=== PATIENT | male | born 1990 | race Caucasian/White ===

== ENCOUNTER 2016-10-13 06:19 | Day surgery (SDC) | payer SELFPAY ==
[~2016-10-13 06:19] MED LIST: Lactated Ringers 1,000 ML IV SCH; ceFAZolin 2 GM in Premix Bag 1 BAG IV SCH
--- NOTE | 2016-10-13 07:00 | PCM.PREANE ---
Preanesthetic Assessment - Anesthesia/Transfusion/Family Hx Anesthesia History: Prior Anesthesia Without Reaction Family History of Anesthesia Reaction: No Transfusion History: No Prior Transfusion(s) Intubation History: Unknown - Review of Systems General: No Symptoms Pulmonary: No Symptoms Cardiovascular: No Symptoms Gastrointestinal: No Symptoms Neurological: No Symptoms Other: Reports: None - Physical Assessment NPO Status Date: 10/12/16 NPO Status Time: 21:00 O2 Sat by Pulse Oximetry: 98 Respiratory Rate: 16 Vital Signs: Last Vital Signs Temp 36.9 C 10/13/16 06:41 Pulse 50 L 10/13/16 06:41 Resp 16 10/13/16 06:41 BP 118/74 10/13/16 06:41 Pulse Ox 98 10/13/16 06:41 Height: 1.75 m Weight: 63.957 kg ASA Class: 2 Mental Status: Alert & Oriented x3 Airway Class: Mallampati = 3 Dentition: Reports: Normal Dentition, Broken Tooth/Teeth (upper right incisor) Thyro-Mental Finger Breadths: 3 Mouth Opening Finger Breadths: 2 ROM/Head Extension: Full Lungs: Clear to Auscultation, Normal Respiratory Effort Cardiovascular: Regular Rate, Regular Rhythm - Allergies Allergies/Adverse Reactions: Allergies Allergy/AdvReac Type Severity Reaction Status Date / Time bee stings Allergy Swelling Uncoded 10/11/16 08:50 - Blood Blood Available: No - Anesthesia Plan Pre-Op Medication Ordered: None - Acknowledgements Anesthesia Type Planned: General Anesthesia Pt an Appropriate Candidate for the Planned Anesthesia: Yes Alternatives and Risks of Anesthesia Discussed w Pt/Guardian: Yes Pt/Guardian Understands and Agrees with Anesthesia Plan: Yes PreAnesthesia Questionnaire Gastrointestinal History: Reports: None - Past Surgical History Head Surgeries/Procedures: Reports: None GI Surgical History: Reports: Hernia, Inguinal (left at age about 10-12) - SUBSTANCE USE Smoking Status *Q: Current Every Day Smoker (< 1 ppd) Tobacco Use Within Last Twelve Months: Cigarettes Recreational Drug Type: Reports: Marijuana/Hashish - HOME MEDS Home Medications: Home Meds Ascorbic Acid [Vitamin C] 1 tab.chew CHEW DAILY 10/11/16 [History] Multivitamin [Multivitamins] 1 tab PO DAILY 10/11/16 [History] - CURRENT (IN HOUSE) MEDS Current Meds: Current Medications Lactated Ringer's (Ringers, Lactated) 1,000 mls @ 125 mls/hr IV ASDIRECTED [facility] Last Admin: 10/13/16 06:44 Dose: 125 mls/hr Cefazolin Sodium/Dextrose 2 gm (/ Premix) 50 mls @ 100 mls/hr IV ONETIME [facility]
[2016-10-13] MEDS ORDERED: Lidocaine 2% 5 ML SDV ONE (07:21)
[2016-10-13] MEDS ORDERED: fentaNYL 250 MCG/5 ML SDV ONE (07:22)
[2016-10-13] MEDS ORDERED: Ketorolac 30 MG/ML SDV ONE (07:22)
[2016-10-13] MEDS ORDERED: Propofol 200 MG/20 ML SDV ONE (07:22)
[2016-10-13] MEDS ORDERED: Neostigmine Methylsulfate 1 MG/ML 5 ML Syringe ONE (07:22)
[2016-10-13] MEDS ORDERED: Midazolam 1 MG/ML 2 ML SDV ONE (07:22)
[2016-10-13] MEDS ORDERED: Ondansetron 4 MG/2 ML SDV ONE (07:22)
[2016-10-13] MEDS ORDERED: ceFAZolin 1 GM Vial ONE (07:27)
[2016-10-13] MEDS ORDERED: Bupivacaine 0.5% 30 ML SDV ONE (07:28)
[2016-10-13] MEDS ORDERED: fentaNYL 100 MCG/2 ML SDV ONE (08:36)
[2016-10-13] MEDS ORDERED: fentaNYL 100 MCG/2 ML SDV IVPUSH PRN (08:42)
[2016-10-13] MEDS ORDERED: Morphine 10 MG/ML Syringe IVPUSH PRN (09:43)
[2016-10-13] MEDS ORDERED: Ondansetron 4 MG/2 ML SDV IVPUSH PRN (09:43)
[2016-10-13] MEDS ORDERED: Acetaminophen/HYDROcodone 325-5 MG Tab PO PRN (09:43)
[2016-10-13] MEDS ORDERED: Lactated Ringers 1,000 ML IV SCH (09:45)
--- NOTE | 2016-10-13 09:46 | PCM.OPNOTE ---
- General Post-Op/Procedure Note Date of Surgery/Procedure: 10/13/16 Operative Procedure(s): Repair incarcerated direct RIH w/XL Bard Perfix plug & patch Pre Op Diagnosis: Incarcerated RIH Post-Op Diagnosis: Same Anesthesia Technique: General ET Tube (ASA II) Primary Surgeon: Arcadio Ramirez Fluid Replacement, Intraop: 1,300 EBL in mLs: 15 Condition: Good Free Text/Narrative:: Dictation [id number]
[2016-10-13 11:38] VITALS: BP 127/75
--- NOTE | 2016-10-13 15:34 | OR ---
SURGEON: Arcadio Ramirez M.D. DATE OF PROCEDURE: 10/13/2016 OPERATION PERFORMED: Repair of direct right inguinal hernia with extra-large Bard PerFix plug and patch. ANESTHESIA: General endotracheal. ASA CLASSIFICATION: II. PREOPERATIVE DIAGNOSIS: Incarcerated right inguinal hernia. POSTOPERATIVE DIAGNOSIS: Incarcerated direct right inguinal hernia with a very large hernia sac. ESTIMATED BLOOD LOSS: 15 mL. INTRAOPERATIVE FLUID REPLACEMENT: 1300 mL of crystalloid. DESCRIPTION OF PROCEDURE: The patient was taken to the operating room, placed on the operating table in the supine position. Time-out was called for appropriate identification of patient and procedure. The surgical site was marked prior to the patient entering the operating room. Thigh-high TEDs and sequential compression boots were placed. Following satisfactory attainment of general endotracheal anesthesia, the abdomen was prepped with DuraPrep solution and sterile drapes were applied. The skin incision was marked out in the right inguinal crease. The skin was then infiltrated with 10 mL of 0.5% Marcaine solution. The skin incision was made and deepened through the subcutaneous tissue obtaining hemostasis with the use of electrocautery. The external oblique was opened in the direction of its fibers. The hernia sac was identified and mobilized away from the cord. Care was taken to preserve and protect the ilioinguinal nerve and spermatic cord. The patient had a very large sac that required significant dissection to mobilize away from the cord. The sac was then opened and high ligation of the sac ultimately carried out with a pursestring suture of 2-0 silk. The hernia sac was inspected for hemostasis and not bleeding. The suture was then cut. The patient had a very large medial defect that required an extra- large Bard PerFix plug and patch. This was brought to the operating table and soaked in 1% Ancef solution. The plug was then placed directly into the defect and secured inferiorly to Martín's ligament with an 0 Ethibond suture. Superiorly, another 0 Ethibond suture was used to secure the plug to the transversalis fascia. The patch was then placed over this with the wings brought around the cord laterally. The patch was then secured with multiple interrupted 0 Ethibond sutures beginning medially and inferiorly to Martín's ligament and pubic tubercle transitioning to the inguinal ligament and superiorly to transversalis fascia. All sutures were placed under direct vision and held with hemostats until the final suture was placed. The wings of the patch were brought around the cord and secured laterally again with an 0 Ethibond suture. All sutures except the lateral stitch were secured. The patient was given a Valsalva maneuver to 46 cm of water and the repair was solid. The lateral suture was then secured with care taken not to impinge on the cord. All sutures were trimmed. The wound was then irrigated with 1% Ancef solution. The cord was returned to its anatomic location. The external oblique fascia was reapproximated with 3-0 Polysorb. Alfreda's fascia was closed with 3- 0 Polysorb. Skin edges were reapproximated with subcuticular 4-0 Maxon. The incision was then Steri-Stripped and dressed with a sterile Tegaderm pad. Sponge, needle, and instrument counts were all correct. The patient tolerated the procedure well. Following emergence from anesthesia and extubation, the patient was taken to recovery room in stable condition. MIKHAIL TSE /[id number]
== END 2016-10-13 11:40 | disposition home or self-care (01) ==
LOC: MW.SDS 06:19
PROVIDERS: ATTEND Surgery
DX: K40.30 Unilateral inguinal hernia, with obstruction, without gangrene, not specified as recurrent (principal); Z91.030 Bee allergy status; Z79.899 Other long term (current) drug therapy; Z98.890 Other specified postprocedural states; F17.210 Nicotine dependence, cigarettes, uncomplicated; Z72.0 Tobacco use
CPT/HCPCS: 49507; A9270; C1781; J0690; J1885; J2250; J2405; J3010; J7120; 00830; 88304; J2704

== ENCOUNTER 2019-01-07 12:50 | Emergency (ER) | payer OTHER ==
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
[2019-01-07 13:12] VITALS: BP 136/88; PULSE 71
--- NOTE | 2019-01-07 15:00 | CR ---
Cervical spine: AP, lateral and odontoid views of cervical spine are obtained. Comparison: No previous study. Vertebral body heights and disc spaces are maintained. Prevertebral soft tissues are normal. No subluxation or fracture is seen. Impression: No abnormality is seen on three-view cervical spine exam. Diagnostic code #1 MTDD
== END 2019-01-07 14:02 | disposition home or self-care (01) ==
LOC: MW.ED 12:50
DX: S16.1XXA Strain of muscle, fascia and tendon at neck level, initial encounter (principal); S60.511A Abrasion of right hand, initial encounter; Z91.030 Bee allergy status; V03.00XA Pedestrian on foot injured in collision with car, pick-up truck or van in nontraffic accident, initial encounter
CPT/HCPCS: 72040; 72040-26; 99283-25

== ENCOUNTER 2021-02-08 10:44 | Emergency (ER) | payer SELFPAY ==
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
--- NOTE | 2021-02-08 12:40 | CT ---
Indication: Neck pain and paresthesias Technique: Volumetric multidetector CT images of the cervical spine were obtained without the administration of IV contrast. Comparison: None available. Findings: Overall, exam is moderately limited due to extensive motion artifact. The cervical vertebral body heights are grossly maintained. There is reversal of the normal cervical lordosis with anterolisthesis of C3 on C4 and trace retrolisthesis of C4 on C5. There is no displaced fracture or dislocation. There is mild to moderate multilevel degenerative disc disease with disc height loss and marginal osteophyte formation. There is mild multilevel facet arthrosis with minimal loss of joint space and marginal osteophyte formation. The paraspinous soft tissues are grossly within normal limits. Impression: Overall moderately limited exam due to motion artifact which may obscure subtle injuries. There is mild degenerative change and spasmodic reversal of the normal cervical lordosis without evidence of acute osseous abnormality. Please note that all CT scans at this facility use dose modulation, iterative reconstruction, and/or weight-based dosing when appropriate to reduce radiation dose to as low as reasonably achievable. Dictated by Manish Clark MD @ 02/08/2021 12:38:22 PM (Electronically Signed)
[2021-02-08 13:50] VITALS: BP 109/55; PULSE 62
== END 2021-02-08 13:52 | disposition home or self-care (01) ==
LOC: MW.ED 10:44
DX: M54.2 Cervicalgia (principal); G89.29 Other chronic pain; Z91.030 Bee allergy status
CPT/HCPCS: 72125; 72125-26; 99283-25

== ENCOUNTER 2021-03-12 14:05 | Emergency (ER) | payer SELFPAY ==
[2021-03-12 16:22] VITALS: BP 137/78; PULSE 78
[2021-03-12] MEDS ORDERED: Acetaminophen/HYDROcodone 325-5 MG Tab PO ONE (17:12)
[2021-03-12] MEDS ORDERED: Benzocaine 20% Topical Spray UD MUCMEM ONE (17:12)
[2021-03-12] MEDS ORDERED: Lidocaine 2% Viscous Solution 15 ML Cup PO ONE (17:12)
[2021-03-12] MEDS ORDERED: Amoxicillin/Clavulanate K 875-125 MG Tab PO ONE (17:13)
--- NOTE | 2021-03-12 17:21 | EDM.PDOC ---
ED HPI GENERAL MEDICAL PROBLEM - General Chief Complaint: ENT Problem Stated Complaint: TOOTH INFECTION Time Seen by Provider: 03/12/21 14:10 Source of Information: Reports: Patient History Limitations: Reports: No Limitations - History of Present Illness INITIAL COMMENTS - FREE TEXT/NARRATIVE: HISTORY AND PHYSICAL: History of present illness: The patient is a 30-year-old male who presents to the emergency room with complaints of tooth #1 and tooth #18 pain for approximately 2 months. He states that the last 4 to 5 days that the pain has progressed to where he is unable to sleep at night. He is otherwise healthy. He denies any nausea or vomiting. The patient has had significant dental work previously. Patient denies any fever, chills, headache, change in vision, syncope or near syncope. Denies any chest pain, back pain, shortness of breath or cough. Denies any abdominal pain, nausea, vomiting, diarrhea, constipation or dysuria. Has not noted any blood in urine or stool. Patient has been eating and drinking appropriately. Review of systems: As per history of present illness and below otherwise all systems reviewed and negative. Past medical history: As per history of present illness and as reviewed below otherwise noncontributory. Surgical history: As per history of present illness and as reviewed below otherwise noncontributory. Social history: See social history for further information Family history: As per history of present illness and as reviewed below otherwise noncontributory. Physical exam: General: Well developed and well nourished. Alert and orientated x 3. Nontoxic in appearance and in no acute distress. Vital signs are stable and have been reviewed by me. Nursing notes were reviewed. HEENT: Atraumatic, normocephalic, pupils equal and reactive bilaterally, negative for conjunctival pallor or scleral icterus, mucous membranes moist, TMs normal bilaterally, throat clear, neck supple, nontender, trachea midline. Tube #1 broken with swelling and redness at the gum level. Tooth #18 broken on posterior side with swelling at gum level. No drooling or trismus noted. No meningeal signs. No hot potato voice noted. Lungs: Normal work of breathing, no accessory muscles used. Skin: Intact, warm, dry. No lesions or rashes noted. Hematologic: No petechiae or purpra. Mucosa appropriate color and normal nail bed color and refill. Extremities: Atraumatic, moves all extremities per self without difficulty or deficits, negative for cords or calf pain. Neurovascular unremarkable. Neuro: Awake, alert, oriented. Motor and sensory unremarkable throughout. Exam nonfocal. Psychiatric: Mood and affect are appropriate. Normal thought process. Answering questions appropriately. Notes: *This patient was seen and evaluated during the 2019 SARS-CoV-2 novel coronavirus pandemic period. Community viral transmission is ongoing at time of this encounter and the emergency department is operating under pandemic response procedures. As stated above the patient is a 30-year-old male who presents for pain of tooth #1 and tooth #18 that have been going on for approximately 2 months but the last 3 to 4 days the pain has progressed to where the patient is unable to sleep at night. I will treat the patient's pain with dental balls, Augmentin 875, and Lebo 325/5 mg in the emergency department. I will prescribe Augmentin 875 mg by mouth twice a day for 7 days and Lebo 325/5 mg by mouth every 4 hours as needed for pain #12. I have talked with the patient about today's findings, in addition to providing specific details for plan of care. Reassessment at the time of disposition demonstrates that the patient is in no acute distress. The patient is stable for discharge, counseling was provided and we discussed in great detail signs and symptoms that would prompt them to return to the Emergency Department. Medication, follow up and supportive care measures were reviewed and discussed. Voices understanding and is agreeable to plan of care. Denies any further questions or concerns at this time. Therapeutics:dental balls, Augmentin 875, and Lebo 325/5 mg Prescription:Augmentin 875 mg by mouth twice a day for 7 days and Lebo 325/5 mg by mouth every 4 hours as needed for pain #12 Impression: Dental caries Plan: 1. You were evaluated today on an emergent basis. Your complaints of right upper molar dental pain and left lower molar dental plane was evaluated and found to require an antibiotic. You were treated with a dental ball which has a lidocaine to help with the discomfort. You were also given Augmentin and antibiotic and Lebo a pain pill. I have prescribed Augmentin 875 mg by mouth twice a day for 7 days which was sent to [facility]. You are given a paper prescription for Lebo 325/5 mg by mouth every 4 hours as needed for pain. You need to see a dentist for definitive care. If fever develops a fever or intense pain or increased swelling please return to the emergency department. 2. You can alternate Tylenol and ibuprofen as needed for pain and fever management. 3. We encourage you to follow up with your primary care provider and/or recommended specialist in the next few days for re-evaluation and further care/management. 4. If your symptoms should worsen, new symptoms develop or any of the signs and symptoms we discussed should arise please return to the emergency room or call 911 (if needed). Definitive disposition and diagnosis as appropriate pending reevaluation and review of above. Jaw Pain Score (Numeric/FACES): 6 - Related Data Allergies Allergy/AdvReac Type Severity Reaction Status Date / Time bee stings Allergy Swelling Uncoded 03/12/21 16:19 Home Meds: Home Meds Amoxicillin/Potassium Clav [Augmentin 875-125 Tablet] 1 each PO BID 7 Days #13 tablet 03/12/21 [Rx] Past Medical History HEENT History: Reports: None Cardiovascular History: Reports: None Respiratory History: Reports: None Gastrointestinal History: Reports: None Genitourinary History: Reports: None Musculoskeletal History: Reports: None Neurological History: Reports: None Psychiatric History: Reports: None Endocrine/Metabolic History: Reports: None Hematologic History: Reports: None Immunologic History: Reports: None Oncologic (Cancer) History: Reports: None Dermatologic History: Reports: None - Infectious Disease History Infectious Disease History: Reports: Chicken Pox - Past Surgical History Head Surgeries/Procedures: Reports: None HEENT Surgical History: Reports: None Cardiovascular Surgical History: Reports: None Respiratory Surgical History: Reports: None GI Surgical History: Reports: Hernia, Inguinal Male Surgical History: Reports: None Endocrine Surgical History: Reports: None Neurological Surgical History: Reports: None Musculoskeletal Surgical History: Reports: None Dermatological Surgical History: Reports: None Social & Family History - Family History Family Medical History: No Pertinent Family History - Caffeine Use Caffeine Use: Reports: None - Recreational Drug Use Recreational Drug Use: No ED ROS ENT - Review of Systems Review Of Systems: Comprehensive ROS is negative, except as noted in HPI. ED EXAM, ENT - Physical Exam Exam: See Below (See dictation) Course - Vital Signs Last Recorded V/S: Last Vital Signs Temp 97.1 F 03/12/21 16:20 Pulse 78 03/12/21 16:20 Resp 16 03/12/21 16:20 BP 137/78 03/12/21 16:20 Pulse Ox 99 03/12/21 16:20 - Orders/Labs/Meds Meds: Medications Discontinued Medications Generic Name Dose Route Start Last Admin Trade Name Chris PRN Reason Stop Dose Admin Hydrocodone Bitart/Acetaminophen 1 tab 03/12/21 17:12 03/12/21 17:55 Acetaminophen/Hydrocodone 325-5 Mg Tab PO 03/12/21 17:13 1 tab ONETIME ONE Administration Amoxicillin/Clavulanate Potassium 1 tab 03/12/21 17:13 03/12/21 17:56 Amoxicillin/Clavulanate K 875-125 Mg Tab PO 03/12/21 17:14 1 tab ONETIME ONE Administration Benzocaine 2 each 03/12/21 17:12 03/12/21 17:56 Benzocaine 20% Topical [place] Ud MUCMEM 03/12/21 17:13 2 each ONETIME ONE Administration Lidocaine HCl 15 ml 03/12/21 17:12 03/12/21 17:57 Lidocaine 2% Viscous Solution 15 Ml Cup PO 03/12/21 17:13 15 ml ONETIME ONE Administration Departure - Departure Time of Disposition: 17:20 Disposition: Home, Self-Care 01 Condition: Good Clinical Impression: Dental caries - Discharge Information *PRESCRIPTION DRUG MONITORING PROGRAM REVIEWED*: No *COPY OF PRESCRIPTION DRUG MONITORING REPORT IN PATIENT BERTRAND: No Prescriptions: Amoxicillin/Potassium Clav [Augmentin 875-125 Tablet] 1 each PO BID 7 Days #13 tablet Instructions: Dental Caries, Adult Referrals: PCP,None [Primary Care Provider] - Forms: ED Department Discharge Additional Instructions: The following information is given to patients seen in the emergency department who are being discharged to home. This information is to outline your options for follow-up care. We provide all patients seen in our emergency department with a follow-up referral. The need for follow-up, as well as the timing and circumstances, are variable depending upon the specifics of your emergency department visit. If you don't have a primary care physician on staff, we will provide you with a referral. We always advise you to contact your personal physician following an emergency department visit to inform them of the circumstance of the visit and for follow-up with them and/or the need for any referrals to a consulting specialist. The emergency department will also refer you to a specialist when appropriate. This referral assures that you have the opportunity for follow-up care with a specialist. All of these measure are taken in an effort to provide you with optimal care, which includes your follow-up. Under all circumstances we always encourage you to contact your private physician who remains a resource for coordinating your care. When calling for follow-up care, please make the office aware that this follow-up is from your recent emergency room visit. If for any reason you are refused follow-up, please contact the [facility] Emergency Department at and asked to speak to the emergency department charge nurse. [facility] - [facility] [address] [place] [id number] [facility] [address] [place] [id number] Plan: 1. You were evaluated today on an emergent basis. Your complaints of right upper molar dental pain and left lower molar dental plane was evaluated and found to require an antibiotic. You were treated with a dental ball which has a lidocaine to help with the discomfort. You were also given Augmentin and antibiotic and Lebo a pain pill. I have prescribed Augmentin 875 mg by mouth twice a day for 7 days which was sent to [place] [facility]. You are given a paper prescription for Lebo 325/5 mg by mouth every 4 hours as needed for pain. You need to see a dentist for definitive care. If fever develops a fever or intense pain or increased swelling please return to the emergency department. 2. You can alternate Tylenol and ibuprofen as needed for pain and fever management. 3. We encourage you to follow up with your primary care provider and/or recommended specialist in the next few days for re-evaluation and further care/management. 4. If your symptoms should worsen, new symptoms develop or any of the signs and symptoms we discussed should arise please return to the emergency room or call 911 (if needed). Sepsis Event Note (ED) - Evaluation Sepsis Screening Result: No Definite Risk - Focused Exam Vital Signs: Vital Signs Temp Pulse Resp BP Pulse Ox 03/12/21 16:20 97.1 F 78 16 137/78 99
== END 2021-03-12 18:03 | disposition home or self-care (01) ==
LOC: MW.ED 14:05
DX: K02.9 Dental caries, unspecified (principal); Z91.030 Bee allergy status
CPT/HCPCS: 99282; A9270

== ENCOUNTER 2022-06-06 10:25 | Emergency (ER) | payer SELFPAY ==
[2022-06-06 11:04] VITALS: BP 116/56; PULSE 56
== END 2022-06-06 11:04 | disposition home or self-care (01) ==
LOC: MW.ED 10:25
DX: K04.7 Periapical abscess without sinus (principal); K00.7 Teething syndrome; Z91.030 Bee allergy status
CPT/HCPCS: 99282; 99283

== ENCOUNTER 2023-08-28 08:53 | Emergency (ER) | payer SELFPAY ==
[2023-08-28 09:47] VITALS: BP 136/84; PULSE 67
[2023-08-28] MEDS: Sodium Chloride 0.9% 1,000 ML IV ONE (09:49)
[2023-08-28 09:56] LABS: BASOPHILS ABSOLUTE AUTO 0.02 K/uL (0.00-0.20); BASOPHILS PERCENT AUTO 0.2 % (0.0-1.0); EOSINOPHILS ABSOLUTE AUTO 0.18 K/uL (0.00-0.45); EOSINOPHILS PERCENT AUTO 1.7 % (0.0-6.0); HEMATOCRIT 40.6 % (42.0-52.0); IMMATURE GRAN ABSOLUTE AUTO 0.02 K/uL (0.00-0.05); IMMATURE GRAN PERCENT AUTO 0.2 % (0.0-0.4); LYMPHOCYTES ABSOLUTE AUTO 1.08 K/uL (1.00-4.80); LYMPHOCYTES PERCENT AUTO 10.3 % (24.0-44.0); MEAN CORPUSCULAR HEMOGLOBIN 31.4 pg (28.0-32.0); MEAN CORPUSCULAR HGB CONC 36.9 g/dL (32.0-36.0); MEAN CORPUSCULAR VOLUME 84.9 fL (83.0-99.0); MEAN PLATELET VOLUME 9.4 fL (9.4-12.4); MONOCYTES ABSOLUTE AUTO 1.13 K/uL (0.00-0.80); MONOCYTES PERCENT AUTO 10.7 % (0.0-8.0); NEUTROPHILS ABSOLUTE AUTO 8.09 K/uL (1.80-7.70); NEUTROPHILS PERCENT AUTO 76.9 % (41.0-71.0); PLATELET COUNT,PLT 170 K/uL (150-400); RED BLOOD CELL COUNT 4.78 M/uL (4.52-5.90); WHITE BLOOD CELL COUNT,WBC 10.52 K/uL (3.9-11.3)
[2023-08-28 10:11] LABS: CALCIUM 8.7 mg/dL (8.5-10.1); CARBON DIOXIDE,CO2 27.1 mmol/L (21.0-32.0); CREATININE 0.9 mg/dL (0.8-1.3); EST CRCL DRUG DOSING (CG) 105.84 mL/min; POTASSIUM,K 3.8 mmol/L (3.5-5.1)
== END 2023-08-28 11:18 | disposition home or self-care (01) ==
LOC: MW.ED 08:53
DX: E86.9 Volume depletion, unspecified (principal); R19.7 Diarrhea, unspecified; K92.9 Disease of digestive system, unspecified; Z91.030 Bee allergy status
CPT/HCPCS: 36415; 80048; 85025; 93005; 96360; 99284; J7030; 99282